=== PATIENT | female | born 1960 | race Caucasian/White ===

== ENCOUNTER 2019-02-23 07:09 | Inpatient (IN) | payer BC ==
[~2019-02-23] VITALS: Ht 157.5 cm; Wt 95.4 kg
[2019-02-23] VITALS (30 sets, daily range): BP systolic 97–167; BP diastolic 55–84; PULSE 68–82; RESP 10–18; Ht 157.5 cm; Wt 95.4 kg
--- NOTE | 2019-02-23 08:32 | PREAC ---
Date/Time of Note Date/Time of Note DATE: 02/23/19 TIME: 08:30 Anesthesia Eval and Record Evaluation Time Pre-Procedure Interview DATE: 02/23/19 TIME: 08:30 Age 58 Sex female NPO: 8 hrs Preoperative diagnosis left breast cancer Planned procedure left modified radical mastectomy Past Medical History Past Medical History: Includes Cardio: HTN, Dyslipidemia (diet modified), Other (hvac technician residential clearance noted) Endo: Other (pre DM) Surgery & Anesthesia Issues No known issue Meds Anticoagulation: No Beta Bassam within 24 hr: Yes Reason Beta Bassam not given: Bradycarida Current Medications Cefazolin Sodium/ Dextrose 50 ml @ 100 mls/hr PRE-OP ONCE IVPB ; Start 02/23/19 at 11:00; Stop 02/23/19 at 11:29 Sodium Chloride 1,000 ml @ 75 mls/hr [id number] ONCE IV Last administered on 02/23/19at 08:28; Admin Dose 75 MLS/HR; Start 02/23/19 at 11:00; Stop 02/24/19 at 00:19 Meds reviewed: Yes Allergies Coded Allergies: No Known Allergy (Unverified , 02/20/19) Allergies Reviewed: Yes Labs/Studies Labs Reviewed: Reviewed by anesthesiologist test: N/A Studies: ECG, CXR, Other Pre-procedure Exam Airway: Adequate mouth opening, Adequate thyromental dist Mallampati: Mallampati II Teeth: Normal Lung: Normal Heart: Normal ASA Physical Status ASA physical status: 2 Emergency: None Planned Anesthetic General/MAC: ETT Planned Pain Management Parenteral pain med, Local by surgeon Pre-operative Attestations Prior to commencing anesthesia and surgery, the patient was re-evaluated, there was verification of: *The patient's identity *The results of appropriate recent lab work and preoperative vital signs *The above evaluation not changing prior to induction *Anesthetic plan, risk benefits, alternative and complications discussed with patient/family; questions answered; patient/family understands, accepts and wishes to proceed. TIMO LI Feb 23, 2019 08:32
[2019-02-23] MEDS ORDERED: ATEN-51 ORAL (08:37)
[2019-02-23] MEDS ORDERED: ISOS30TA67 ORAL (08:37)
[2019-02-23] MEDS ORDERED: AMLO-145 ORAL (08:37)
[2019-02-23] MEDS ORDERED: PROPOFOL 20 ML ONE (08:39)
[2019-02-23] MEDS ORDERED: CEFAZOLIN 1 GM INJ ONE (08:39)
[2019-02-23] MEDS ORDERED: ROCURONIUM 50 MG INJ ONE (08:39)
[2019-02-23] MEDS ORDERED: LIDOCAINE 2% (SDV) 5 ML INJ ONE (08:39)
[2019-02-23] MEDS ORDERED: HYDROmorphONE 2 MG/ML SYG ONE (08:39)
[2019-02-23] MEDS ORDERED: MIDAZOLAM 1 MG/ML 2 ML INJ ONE (08:39)
[2019-02-23] MEDS ORDERED: DEXAMETHASONE 4 MG/ML 5 ML INJ ONE (09:21)
[2019-02-23] MEDS ORDERED: METOCLOPRAMIDE 10 MG INJ ONE (09:22)
[2019-02-23] MEDS ORDERED: ONDANSETRON 4 MG INJ ONE (09:22)
[2019-02-23] MEDS ORDERED: FAMOTIDINE 20 MG INJ ONE (09:22)
[2019-02-23] MEDS ORDERED: EPHEDrine 25 MG/5 ML SYG ONE (09:28)
[2019-02-23] MEDS ORDERED: ALBUTEROL 0.083% (NEB) 2.5 MG/3 ML AMP HHN PRN (10:00)
[2019-02-23] MEDS ORDERED: OXYCODONE/ACETAMINOPHEN (5/325) TAB PO PRN ×2 (10:00)
[2019-02-23] MEDS ORDERED: HYDROmorphONE 1 MG/5 ML IV SYRINGE IV PRN ×3 (10:00)
[2019-02-23] MEDS ORDERED: LABETALOL HCL 20MG INJ IV PRN (10:00)
[2019-02-23] MEDS ORDERED: MEPERIDINE 25 MG INJ IV PRN (10:00)
[2019-02-23] MEDS ORDERED: ONDANSETRON 4 MG INJ IV PRN ×2 (10:00→11:00)
[2019-02-23] MEDS ORDERED: SUGAMMADEX SODIUM 200 MG/2 ML VIAL IV ONE (10:00)
--- NOTE | 2019-02-23 10:34 | SIPON ---
Date/Time of Note Date/Time of Note DATE: 02/23/19 TIME: 10:31 Operative Report Preoperative Diagnosis Locally advanced left breast cancer Postoperative Diagnosis Same Operation/Procedure Performed Left modified radical mastectomy Surgeon see signature line business assistant Dr Samuels Anesthesia: general Estimated blood loss: 10 - 50 ml's Transfusion Required none Specimen Left breast and axillary contents and additional posterior lateral tissue Grafts/Implants none Complications none RD LENZ MD Feb 23, 2019 10:34
[2019-02-23] MEDS: SOD CHLORIDE 0.9% 1,000 ML IV SCH (10:39)
[2019-02-23] MEDS ORDERED: SOD CHLORIDE 0.9% 1,000 ML IV ONE (11:00)
[2019-02-23] MEDS ORDERED: ACETAMINOPHEN 1000MG/100ML IV 100 ML IVPB PRN (11:00)
[2019-02-23] MEDS ORDERED: morphine 2 MG INJ IV PRN (11:00)
[2019-02-23] MEDS ORDERED: CEFAZOLIN 2 GM/50 ML (PMX) 50 ML IVPB ONE (11:00)
--- NOTE | 2019-02-23 11:24 | PAC ---
Date/Time of Note Date/Time of Note DATE: 02/23/19 TIME: 11:23 Post-Anesthesia Notes Post-Anesthesia Note Last documented vital signs Vital Signs Date Temp Pulse Resp B/P (MAP) Pulse Ox O2 O2 Flow FiO2 Time Delivery Rate 02/23/19 70 12 116/69 96 Room Air 10:56 (85) 02/23/19 98.0 08:38 Activity: WNL Respiratory function: WNL Cardiovascular function: WNL Mental status: Baseline Pain reasonably controlled: Yes Hydration appropriate: Yes Nausea/Vomiting absent: Yes TIMO LI Feb 23, 2019 11:24
--- NOTE | 2019-02-23 11:33 | OPR ---
DATE OF OPERATION: 02/23/2019 PREOPERATIVE DIAGNOSIS: Locally advanced left breast cancer. POSTOPERATIVE DIAGNOSIS: Locally advanced left breast cancer. OPERATION PERFORMED: Left modified radical mastectomy. ANESTHESIA: General anesthesia. ANESTHESIOLOGIST: Nurse administrative assistant data entry, Manuel Moreno. SURGEON: Benja Rust MD RADIATOR TESTER: Mendez Samuels MD INDICATIONS FOR PROCEDURE: The patient is an unfortunate 58-year-old female who noticed a mass in he r left breast. Workup including mammography, ultrasound and subsequent biopsy revealed an invasive c ancer in the upper outer quadrant of her left breast and there was biopsy proven axillary metastasis. I discussed with the patient the possible benefit of neoadjuvant chemotherapy; however, the patient and her medical oncologist, Dr. Alessandra Dey preferred to move directly to surgery. The patient con sented and was scheduled for surgery. Dictated By: BENJA RUST MD TL/NAS Conf#: [id number] DID#: [id number]
[2019-02-23] MEDS: D5W-0.45 NACL + KCL 20 MEQ 1,000 ML IV SCH ×3 (12:00→20:45)
--- NOTE | 2019-02-23 12:35 | OPR ---
DATE OF OPERATION: 02/23/2019 PREOPERATIVE DIAGNOSIS: Locally advanced left breast cancer. POSTOPERATIVE DIAGNOSIS: Locally advanced left breast cancer. OPERATION PERFORMED: Left modified radical mastectomy. ANESTHESIA: General. ANESTHESIOLOGIST: Nurse instant potato processing supervisor, Manuel Moreno. SURGEON: Benja Rust MD ELECTRONIC DEVELOPMENT TECHNICIAN: Mendez Danielle MD INDICATIONS FOR PROCEDURE: The patient is an unfortunate 58-year-old female who noticed a mass in he r left breast. She underwent radiographic workup and subsequent biopsy which confirmed an invasive c ancer with biopsy proven axillary metastasis. She was counseled as to the possible benefit of neoadj uvant chemotherapy but both her and her medical oncologist, Dr. Alessandra Dey wished to proceed direct ly with surgery. She consented and was scheduled for surgery. DESCRIPTION OF PROCEDURE: The patient was brought to the operating theater, placed under general ane sthesia. The left breast and axillary region was prepped and draped in usual sterile fashion. A wid e elliptical incision was made encompassing the nipple areolar complex and a significant amount of th e skin overlying the breast. This was accomplished with #15 blade scalpel. Subcutaneous tissue was dissected with cautery. The skin edges were then elevated with Allis Willy clamps and skin flaps wer e created using cautery, first superiorly to the clavicle, then medially to the sternal border, infer iorly to the inframammary fold and laterally until the latissimus dorsi muscle was identified through out its course. Mastectomy then took place from medial to lateral using cautery. At the border of t he pectoralis major muscle, the pectoralis minor muscle was identified. Clavipectoral fascia was inc ised to allow access into the axilla with blunt dissection along the chest wall. The long thoracic n erve was identified and kept out of harm's way. More superiorly, the axillary vein was identified an d dissected from medial to lateral. The thoracodorsal neurovascular bundle was then identified and k ept out of harm's way. Node bearing tissue between the long thoracic nerve and thoracodorsal nerve w as meticulously dissected with a combination of the use of the LigaSure device and cautery. There we re palpable pathologic lymph nodes noted. In this fashion, level 1 and level 2 lymph nodes were beth rebel. The remaining connective tissue attachments to the pectoralis major muscle were then transected with cautery. The specimen was removed, it was oriented and sent for permanent pathologic analysis. The wound was irrigated. Minimal bleeding was controlled with cautery, and at this point 2 #10 Shalom kson-Robison drains were brought through the left mid axillary line, one was cut to size and laid withi n the axilla, the other was laid over the pectoralis major muscle. Both drains were secured in place with 2-0 nylon sutures in the standard fashion. The skin was then reapproximated with skin mandeep. Patient tolerated the procedure well. The estimated blood loss was approximately 50 mL. There wer e no complications and the patient was transported in stable condition to the recovery room where cir cumferential compression dressing was applied. Dictated By: BENJA RUST MD TL/NTS Conf#: [id number] DID#: [id number] CC: MENDEZ DANIELLE MD;*EndCC*
[2019-02-23] MEDS: ATENOLOL 25 MG TAB PO SCH (20:44)
[2019-02-23] MEDS: HYDROCODONE/APAP (5/325) TAB PO PRN (20:44)
[2019-02-24 00:10] VITALS: BP 124/61; PULSE 83; RESP 18
[2019-02-24] MEDS: D5W-0.45 NACL + KCL 20 MEQ 1,000 ML IV SCH ×2 (04:53→13:03)
[2019-02-24 04:59] VITALS: BP 126/58; PULSE 82; RESP 17
--- NOTE | 2019-02-24 05:09 | HP ---
DATE OF ADMISSION: 02/23/2019 CHIEF COMPLAINT AND HISTORY OF PRESENT ILLNESS: The patient is a 58-year-old female with history of hypertension who noticed a left breast mass. The patient subsequently underwent biopsy and confirmed invasive cancer with biopsy proven axillary metastasis. She was referred to Dr. Dey who recommended to proceed with the surgery. The patient was brought into hospital today and underwent left modified radical mastectomy. The patient has significant postoperative pain and is being admitted for further evaluation and management. The patient denies any shortness of breath. No history of vomiting. No history of nausea. No history of abdominal pain. No history of leg edema. No history of resting leg pain. No history of numbness, tingling or weakness in any extremity. REVIEW OF SYSTEMS: Other than postoperative pain, rest of review of systems is unremarkable. PAST SURGICAL HISTORY: None. ALLERGIES: NONE. SOCIAL HISTORY: No smoking, no alcohol. FAMILY HISTORY: Noncontributory. PHYSICAL EXAMINATION: GENERAL: Revealed the patient to be awake, alert. VITAL SIGNS: Blood pressure 105/55, pulse 79, respirations 18, temperature 97.9, O2 saturation 97% on room air. HEENT: No eye discharge or redness. Conjunctivae and lids are normal. Oropharynx is clear. NECK: No mass. CHEST: Fairly clear. CARDIOVASCULAR: S1, S2 normal. ABDOMEN: Soft, nontender. Bowel sounds plus. EXTREMITIES: No edema. NEUROLOGIC: The patient is awake, alert with no gross focal deficit. LABORATORY DATA: WBC 10.8, hemoglobin 11.9, platelet 266. Coagulation profile normal. Sodium 143, potassium 4.7, BUN 23, creatinine 0.8. Liver enzymes normal. DIAGNOSTIC DATA: EKG: Normal sinus rhythm with no acute ST changes. Chest x- ray: Unremarkable. All these preop tests were done as an outpatient. IMPRESSION: 1. Left breast cancer with axillary metastasis, status post surgery as described above. 2. Hypertension. PLAN: The patient will be admitted on medical floor. The patient will be started on clear liquid diet, which will be advanced as tolerated. The patient's blood pressure is on the low side of the normal. We will resume medication as tolerated. The patient did see Dr. Michael as an outpatient from cardiology clearance. For pain, the patient will be given Tylenol, [place] and IV morphine depending upon severity of pain. The patient's PET scan revealed 1.2 cm left renal mass. Subsequently, the patient underwent MRI which did reveal left kidney mass suspicious for hemorrhagic cyst. The patient also had CT of the abdomen with IV contrast done on 01/25/2019 which was negative for any renal mass, I suggested to patient's daughter to show the MRI copy to Dr. Dey for further followup. We will continue to follow. Dictated By: ESTELA CORADO/NAS Conf#: [id number] DID#: [id number] CC: RD LENZ MD;*EndCC* MTDD
[2019-02-24] MEDS: SOD CHLORIDE 0.9% 1,000 ML IV SCH (06:00)
[2019-02-24 07:22] VITALS: BP 118/60; PULSE 82; RESP 18
[2019-02-24] MEDS: AMLODIPINE 5 MG TAB PO SCH (09:00)
[2019-02-24] MEDS: ATENOLOL 25 MG TAB PO SCH ×2 (09:27→21:06)
[2019-02-24] MEDS: HYDROCODONE/APAP (5/325) TAB PO PRN ×2 (09:36→21:29)
[2019-02-24 14:33] VITALS: BP 126/62; PULSE 68; RESP 18
--- NOTE | 2019-02-24 14:49 | PN ---
Date/Time of Note Date/Time of Note DATE: 02/24/19 TIME: 14:43 Assessment/Plan VTE Prophylaxis Risk score (from Ns)>0 risk: 7 SCD applied (from Ns): Yes Pharmacological prophylaxis: NA/contraindicated Pharm contraindication: surgical contra Lines/Catheters IV Catheter Type (from Nrsg): Peripheral IV Urinary Cath still in place: No Assessment/Plan Hospital Course Patient complains of generalized weakness, denies any nausea and vomiting, continue current pain management, and encouraged to use incentive spirometer and get out of bed. Assessment/Plan - Left breast cancer with axillary metastasis, s/p Left modified radical mastectomy by Dr. Rust on 02/23/2019. Continue Norvasc and morphine as needed for pain, and Zofran as needed for nausea. Continue IV fluids and postoperative antibiotic. - Hypertension. Continue Norvasc. Further recommendations based on clinical course. Plan of care discussed with Dr. Garrison. Result Diagram: 02/24/19 0456 02/24/19 0456 Results 24hrs Laboratory Tests Test 02/24/19 04:56 White Blood Count 15.5 H Red Blood Count 4.07 L Hemoglobin 11.1 L Hematocrit 35.2 L Mean Corpuscular Volume 86.5 Mean Corpuscular Hemoglobin 27.3 L Mean Corpuscular Hemoglobin Concent 31.5 L Red Cell Distribution Width 14.2 Platelet Count 188 Mean Platelet Volume 11.8 H Immature Granulocytes % 0.500 H Neutrophils % 80.2 H Lymphocytes % 12.3 L Monocytes % 6.9 Eosinophils % 0.0 Basophils % 0.1 Nucleated Red Blood Cells % 0.0 Immature Granulocytes # 0.080 H Neutrophils # 12.4 H Lymphocytes # 1.9 Monocytes # 1.1 H Eosinophils # 0.0 Basophils # 0.0 Nucleated Red Blood Cells # 0.0 Sodium Level 140 Potassium Level 4.9 Chloride Level 109 Carbon Dioxide Level 21 Anion Gap 10 Blood Urea Nitrogen 20 Creatinine 0.66 Est Glomerular Filtrat Rate mL/min > 60 Glucose Level 111 Calcium Level 8.3 L Exam/Review of Systems Exam Vitals Vital Signs Date Temp Pulse Resp B/P (MAP) Pulse Ox O2 O2 Flow FiO2 Time Delivery Rate 02/24/19 97.6 68 18 126/62 99 14:33 (83) 02/24/19 Room Air 04:59 Intake and Output 02/23/19 02/23/19 02/24/19 1515:00 23:00 07:00 IntakeIntake Total 1360 ml 1460 ml 1000 ml OutputOutput Total 45 ml 440 ml 345 ml BalanceBalance 1315 ml 1020 ml 655 ml Constitutional: alert, oriented Head: normocephalic Neck: supple Respiratory: clear to auscultation Cardiovascular: nl pulses Gastrointestinal: soft, non-tender Musculoskeletal: nl extremities to inspection Extremities: normal pulses Neurological: nl mental status Skin: other (Status post left modified radical mastectomy) Results Results 24hrs Laboratory Tests Test 02/24/19 04:56 White Blood Count 15.5 H Red Blood Count 4.07 L Hemoglobin 11.1 L Hematocrit 35.2 L Mean Corpuscular Volume 86.5 Mean Corpuscular Hemoglobin 27.3 L Mean Corpuscular Hemoglobin Concent 31.5 L Red Cell Distribution Width 14.2 Platelet Count 188 Mean Platelet Volume 11.8 H Immature Granulocytes % 0.500 H Neutrophils % 80.2 H Lymphocytes % 12.3 L Monocytes % 6.9 Eosinophils % 0.0 Basophils % 0.1 Nucleated Red Blood Cells % 0.0 Immature Granulocytes # 0.080 H Neutrophils # 12.4 H Lymphocytes # 1.9 Monocytes # 1.1 H Eosinophils # 0.0 Basophils # 0.0 Nucleated Red Blood Cells # 0.0 Sodium Level 140 Potassium Level 4.9 Chloride Level 109 Carbon Dioxide Level 21 Anion Gap 10 Blood Urea Nitrogen 20 Creatinine 0.66 Est Glomerular Filtrat Rate mL/min > 60 Glucose Level 111 Calcium Level 8.3 L Medications Medication Current Medications Sodium Chloride 1,000 ml @ 50 mls/hr Q20H IV Last administered on 02/23/19at 10:39; Admin Dose 50 MLS/HR; Start 02/23/19 at 10:00 Ondansetron HCl (Zofran Inj) 4 mg Q6H PRN IV NAUSEA AND/OR VOMITING; Start 02/23/19 at 11:00 Potassium Chloride/Dextrose/ Sod Cl 1,000 ml @ 125 mls/hr Q8H IV Last a dministered on 02/24/19at 13:03; Admin Dose 125 MLS/HR; Start 02/23/19 at 10:34 Morphine Sulfate (morphine) 2 mg Q1H PRN IV PAIN; Start 6/17/19 at 11:00 Amlodipine Besylate (Norvasc) 5 mg DAILY PO ; Start 02/24/19 at 09:00 Atenolol (Tenormin) 25 mg BID PO Last administered on 02/24/19at 09:27; Admin Dose 25 MG; Start 02/23/19 at 21:00 Acetaminophen/ Hydrocodone Bitart ([place] (5/325)) 1 tab Q4H PRN PO MODERATE PAIN LEVEL 4-6 Last administered on 02/24/19at 09:36; Admin Dose 1 TAB; Start 02/23/19 at 18:00 MARITZA KATHLEEN Feb 24, 2019 14:49
[2019-02-24 20:00] VITALS: BP 114/54; PULSE 75; RESP 20
[2019-02-24 21:00] VITALS: BP 127/60; PULSE 68
--- NOTE | 2019-02-24 21:35 | PN ---
DATE: 02/24/2019 SUBJECTIVE: Postop day #1 status post left breast modified radical mastectomy with axillary dissecti on. SUBJECTIVE: Has been complaining of nausea and even vomiting all last night and slightly better toda y. Has been out of bed to the bathroom only. Also complain of pain that required pain medication. OBJECTIVE: GENERAL: Awake, alert, oriented. VITAL SIGNS: Temperature today 98.2, heart rate 82, respirations 18, blood pressure 126/58, saturati on 98% room air. LABORATORY DATA: WBC 15,500 with 80% neutrophils, shift to the left, hemoglobin 11.1, hematocrit 35. 2. Chemistry: Sodium, potassium, BUN, creatinine within normal limits. Total urine output in the p ast 24 hours has been 700 mL. Erik-Robison drains, 2 Erik-Robison, one has drained 70 mL, 1145 mL from the time of operation to 7:00 today morning. It is serosanguineous. PHYSICAL EXAM: GENERAL: The patient is alert, awake, lying down in the bed, semi-sitting position. HEART: Regular. LUNGS: He is breathing sound at bases. Two Erik-Robison drains draining serosanguineous fluid. EXTREMITIES: The patient can move the left upper extremity almost as good as right upper extremity. The wrap around dressing is not too tight. ASSESSMENT: Postop day #1 left breast modified radical mastectomy and axillary resection. The patie nt has been suffering from nausea and vomiting and has not been eating that much or drinking. Theref ore, would keep the patient another night. Hopefully, by tomorrow we can discharge the patient. Dictated By: MARYCHUY DANIELLE MD PS/NTS Conf#: [id number] DID#: [id number] CC: RD LENZ MD;*EndCC*
[2019-02-25 00:10] VITALS: BP 92/55; PULSE 68; RESP 18
[2019-02-25] MEDS: SOD CHLORIDE 0.9% 1,000 ML IV SCH (02:00)
[2019-02-25] MEDS: D5W-0.45 NACL + KCL 20 MEQ 1,000 ML IV SCH ×3 (02:34→18:34)
[2019-02-25 07:24] VITALS: BP 124/57; PULSE 64; RESP 18
[2019-02-25] MEDS: ATENOLOL 25 MG TAB PO SCH (08:25)
[2019-02-25] MEDS: AMLODIPINE 5 MG TAB PO SCH (08:25)
[2019-02-25] MEDS: HYDROCODONE/APAP (5/325) TAB PO PRN ×2 (08:26→15:38)
[2019-02-25] MEDS: MAGNESIUM HYDROXIDE 30ML CUP PO STA ×2 (12:16→13:23)
[2019-02-25] MEDS: BISACODYL 10 MG SUPP PR STA ×2 (12:16→13:24)
[2019-02-25] MEDS ORDERED: SENN-36 PO (13:19)
[2019-02-25] MEDS ORDERED: HYDR-3601 PO (13:19)
[2019-02-25] MEDS ORDERED: MINERAL OIL 30ML CUP PO SCH (14:00)
[2019-02-25 16:38] VITALS: BP 137/62; PULSE 62; RESP 18
[2019-02-25 20:57] VITALS: BP 111/59; PULSE 70; RESP 18
--- NOTE | 2019-02-25 21:59 | PN ---
DATE: 02/25/2019 Postop day #2 status post left breast modified radical mastectomy. SUBJECTIVE: The patient states that she feels weak and tired. No fever, no nausea, no vomiting. Has been out of bed only to go to the bathroom. Somewhat sleepy but easily arousable. VITAL SIGNS: Temperature maximum 98.7, heart rate 68, respiration 18, blood pressure 124/57. LABORATORY DATA: WBC dropped to 10,000 with 57% segmented, which is normal. Hemoglobin 10.2, Chemistry: Sodium, potassium, BUN, creatinine. I and O's are 2 Erik-Heri. The drainage is serosanguineous. They are draining 50 mL in past 24 hours each of them, totally 100 mL of serosanguineous fluid. Dressing is intact. Family has been instructed in care of the Erik-Robison drain. ASSESSMENT AND PLAN: The patient with left modified radical mastectomy. Postop day #2, the patient from surgical point of view appears to be stable. Blood pressure is okay. Heart rate is okay. Drainage from the tube is not bloody. Therefore, the patient can be discharged home to be followed by Dr. Lenz in the office, but the patient's daughter states that the patient is not feeling good to go home, so I leave this to medical service to make a decision. From surgical point of view, the patient can be discharged. Dictated By: MARYCHUY DANIELLE MD PS/NTS Conf#: [id number] DID#: [id number] CC: RD LENZ MD;*EndCC* MTDD
--- NOTE | 2019-02-25 22:29 | DS ---
Date/Time of Note Date/Time of Note DATE: 02/25/19 TIME: 22:23 Discharge Summary Admission/Discharge Info Admit Date/Time Feb 23, 2019 at 07:09 Discharge Date/Time Patient Condition: Stable Hx of Present Illness The patient is a 58-year-old female with history of hypertension who noticed a left breast mass. The patient subsequently underwent biopsy and confirmed i nvasive cancer with biopsy proven axillary metastasis. She was referred to Dr. Dey who recommended to proceed with the surgery. The patient was brought into hospital today and underwent left modified radical mastectomy. The patient has significant postoperative pain and is being admitted for further evaluation and management. The patient denies any shortness of breath. No history of vomiting. No history of nausea. No history of abdominal pain. No history of leg edema. No history of resting leg pain. No history of numbness, tingling or weakness in any extremity. Hospital Course - Left breast cancer with axillary metastasis, s/p Left modified radical mastectomy by Dr. Rust on 02/23/2019. Continue Norvasc and morphine as needed for pain, and Zofran as needed for nausea. Continue IV fluids and postoperative antibiotic. Encourage to get out of bed, ambulation. - Hypertension. Continue Norvasc. Plan of care discussed with Dr. Garrison. Home Meds Active Scripts Sennosides* (Senokot*) 8.6 Mg Tablet, 1 TAB PO DAILY, #30 TAB Prov:MARITZA KATHLEEN 02/25/19 Hydrocodone Bit-Acetaminophen (Hydrocodone Bit-APAP) 5-325MG Tablet, 1 TAB PO Q4H PRN for MODERATE PAIN LEVEL 4-6, #30 TAB Prov:MARITZA KATHLEEN 02/25/19 Reported Medications Amlodipine Besylate* (Amlodipine Besylate*) 5 Mg Tablet, 1 TAB ORAL DAILY 02/23/19 Isosorbide Mononitrate* (Isosorbide Mononitrate*) 30 Mg Tab.er.24h, 1 TAB ORAL DAILY 02/23/19 Atenolol* (Atenolol*) 25 Mg Tablet, 1 TAB ORAL BID 02/23/19 Follow-up Plan DC home in the afternoon, patient to follow-up with Dr. Rust in 1 to 2 weeks. Primary Care Provider Not On Staff Doctor Time spent on discharge: > 30 minutes Pending Labs Laboratory Tests Test 02/25/19 04:28 02/25/19 08:14 White Blood Count 10.0 10^3/ul (4.8-10.8) Red Blood Count 3.65 10^6/ul (4.20-5.40) Hemoglobin 10.2 g/dl (12.0-16.0) Hematocrit 31.9 % (37.0-47.0) Mean Corpuscular Volume 87.4 fl (82.0-101.0) Mean Corpuscular Hemoglobin 27.9 pg (29.0-33.0) Mean Corpuscular 32.0 g/dl (32.0-37.0) Hemoglobin Concent Red Cell Distribution Width 14.4 % (11.5-14.5) Platelet Count 214 10^3/UL (140-415) Mean Platelet Volume 10.6 fl (7.4-10.4) Immature Granulocytes % 0.400 % (0.001-0.429) Neutrophils % 53.4 % (39.0-77.0) Lymphocytes % 38.1 % (15.0-51.0) Monocytes % 7.1 % (0.0-11.0) Eosinophils % 0.6 % (0.0-7.0) Basophils % 0.4 % (0.0-2.0) Nucleated Red Blood Cells % 0.0 /100WBC (0.0-0.0) Immature Granulocytes # 0.040 10^3/ul (0.0-0.031) Neutrophils # 5.3 10^3/ul (1.6-7.5) Lymphocytes # 3.8 10^3/ul (0.8-2.9) Monocytes # 0.7 10^3/ul (0.3-0.9) Eosinophils # 0.1 10^3/ul (0.0-0.5) Basophils # 0.0 10^3/ul (0.0-0.1) Nucleated Red Blood Cells # 0.0 10^3/ul (0.0-0.0) Sodium Level 142 mmol/L (135-144) Potassium Level 4.5 mmol/L (3.5-5.1) Chloride Level 110 mmol/L (97-110) Carbon Dioxide Level 23 mmol/L (21-31) Anion Gap 9 (5-13) Blood Urea Nitrogen 25 mg/dl (7-20) Creatinine 0.73 mg/dl (0.44-1.00) Est Glomerular Filtrat > 60 mL/min (>60) Rate mL/min Glucose Level 92 mg/dl (70-220) Calcium Level 8.4 mg/dl (8.4-10.2) Lab Scanned Report [facility] [id number] MARITZA KATHLEEN Feb 25, 2019 22:29
== END 2019-02-25 20:45 | disposition home or self-care (01) | DRG 580 ==
LOC: REC 07:09 → EDSTATUS 11:30 → MS1 11:41
PROVIDERS: ADMIT Surgery Surgical Oncology; ATTEND Surgery Surgical Oncology
PROC: 0HBU0ZZ Excision of Left Breast, Open Approach (ICD-10-PCS; 2019-02-23)
PROC: 07B60ZX Excision of Left Axillary Lymphatic, Open Approach, Diagnostic (ICD-10-PCS; principal; 2019-02-23 09:00)
DX: C50.919 Malignant neoplasm of unspecified site of unspecified female breast (principal); C77.3 Secondary and unspecified malignant neoplasm of axilla and upper limb lymph nodes; I10 Essential (primary) hypertension; E78.5 Hyperlipidemia, unspecified
CPT/HCPCS: 80048; 85025; 88307; 88309; J0690; J1100; J1170; J2250; J2405; J2765; J3480; J7030